=== PATIENT | male | born 1945 | race Caucasian/White ===

== ENCOUNTER 2017-12-24 09:03 | Outpatient (CLI) | payer MEDICARE, BC ==
--- NOTE | 2017-12-24 10:14 | ULT ---
ULTRASOUND TESTICULAR DOPPLER: Date: 12/24/17 HISTORY: Pain. COMPARISON: Ultrasound testicular Doppler dated 03/09/17. TECHNIQUE: Real-time Ordaz scale with color flow and spectral analysis of the testicles was performed. FINDINGS: Right testicle measures 4.6 x 2.5 x 1.9 cm. Left testicle measures 4.1 x 2.6 x 2.6 cm. Both epididymi abran are normal. The left fluid collection has similar appearance to the complex epididymal cyst/spermatocele. Adequate vascular flow to both testicles. IMPRESSION: Similar appearance of the left testicular fluid collection likely spermatocele. POS: [facility]
== END 2017-12-24 09:04 | disposition home or self-care (01) ==
LOC: SCSULT 09:03
PROVIDERS: ATTEND Urology
DX: N43.3 Hydrocele, unspecified (principal)
CPT/HCPCS: 76870; 93976

== ENCOUNTER 2019-06-24 07:55 | Outpatient (CLI) | payer MEDICARE ==
[2019-06-24 10:09] LABS: Hemoglobin 13.8 g/dL (14.0-18.0); Mean Corpuscular Hemoglobin 29.9 pg (27.0-31.0); Mean Corpuscular Volume 88.1 fL (78.0-98.0); Mean Platelet Volume 7.9 fL (7.4-10.4); Platelet Count 209 thou/uL (130-400); RBC Distribution Width 12.4 % (11.5-14.5); White Blood Cell (WBC) Count 7.2 thou/uL (4.8-10.8)
[2019-06-24 10:13] LABS: INR-International Normal Ratio 0.9; Prothrombin Time 12.4 SEC (12.0-14.7)
[2019-06-24 10:21] LABS: Anion Gap 13 mmol/L (10-20); BUN (Urea Nitrogen) 16 mg/dL (8.4-25.7); Calc. Creatinine Clearance 0 mL/min (70-130); Calcium 9.2 mg/dL (7.8-10.44); Carbon Dioxide 23 mmol/L (23-31); Chloride 109 mmol/L (98-107); Estimated GFR-MDRD 66; Glucose 107 mg/dL (83-110); Sodium 141 mmol/L (136-145)
[2019-06-24 10:29] LABS: Bacteria/HPF None Seen HPF (None Seen); Bilirubin Negative (Negative); Blood, Urine Negative (Negative); Clarity Clear (Clear); Glucose, Urine (Dipstick) Normal (Negative); Leukocyte Negative Leu/uL (Negative); Nitrite Negative (Negative); Protein, Urine (Dipstick) Negative (Neg-Trace); RBC/HPF 0-3 HPF (0-3); Squamous Epithelial 0-3 HPF (0-3); Urobilinogen Normal mg/dL (Less than 2); WBC/HPF 0-3 HPF (0-3)
--- NOTE | 2019-06-24 17:58 | EKG ---
Test Reason : Blood Pressure : / mmHG Vent. Rate : 058 BPM Atrial Rate : 058 BPM P-R Int : 216 ms QRS Dur : 096 ms QT Int : 420 ms P-R-T Axes : 053 053 053 degrees QTc Int : 412 ms Sinus bradycardia with 1st degree A-V block Otherwise normal ECG No previous ECGs available Confirmed by Karen LING ([id number]) on 06/24/2019 5:57:59 PM Referred By: ARELY Confirmed By:Karen LING
== END 2019-06-24 07:56 | disposition home or self-care (01) ==
LOC: LABBT 07:55
PROVIDERS: ATTEND Urology
DX: Z01.818 Encounter for other preprocedural examination (principal); N43.3 Hydrocele, unspecified; I11.9 Hypertensive heart disease without heart failure; E78.5 Hyperlipidemia, unspecified; R97.20 Elevated prostate specific antigen [PSA]; Z12.5 Encounter for screening for malignant neoplasm of prostate; N40.0 Benign prostatic hyperplasia without lower urinary tract symptoms
CPT/HCPCS: 80048; 81001; 85027; 85610; 85730; 87086; 93005; 93010

== ENCOUNTER 2019-07-04 08:02 | Day surgery (SDC) | payer MEDICARE ==
[2019-06-24 08:23] VITALS: BMI 32.3
[2019-07-04] MEDS ORDERED: Ondansetron PF 4 MG/2 ML Vial ONE (09:35)
[2019-07-04] MEDS ORDERED: Dexamethasone 20 MG/5 ML VIAL ONE (09:35)
[2019-07-04] MEDS ORDERED: PROPOFOL 200 MG/20 ML VIAL ONE (09:35)
[2019-07-04] MEDS ORDERED: Glycopyrrolate 0.2 MG/ML 5 ML SYRINGE ONE (09:35)
[2019-07-04] MEDS ORDERED: Lidocaine 1% PF 5 ML VIAL ONE (09:35)
[2019-07-04] MEDS ORDERED: Gentamicin 80 MG/2 ML VIAL ONE (10:21)
[2019-07-04] MEDS ORDERED: Bacitracin Zinc Ointment 30 gm TUBE ONE (10:21)
[2019-07-04] MEDS ORDERED: Fentanyl 100 MCG/2 ML VIAL ONE (11:54)
[2019-07-04] MEDS ORDERED: HYDROcodone/Acetaminophen 5/325 mg Tablet ONE ×2 (14:46)
--- NOTE | 2019-07-04 15:25 | OP ---
DATE OF PROCEDURE: 07/04/2019 PREOPERATIVE DIAGNOSIS: A 74-year-old male with history of large left hydrocele measuring over 15 cm encroaching the inguinal canal present for the last 20 to 25 years. POSTOPERATIVE DIAGNOSIS: A 74-year-old male with history of large left hydrocele measuring over 15 cm encroaching the inguinal canal present for the last 20 to 25 years. PROCEDURE PERFORMED: Left hydrocelectomy/spermatocelectomy. ANESTHESIA: General. SPECIMEN: Spermatocele sac, hydrocele sac for permanent. INDICATIONS FOR PROCEDURE AND HISTORY: Mr. Casillas is a pleasant 74-year-old male, who is a semi-retired manager heavy equipment, who has a history of left hydrocele, spermatocele present for over 20 years. It has been increasing in size and he desires to proceed with left hydrocelectomy, spermatocelectomy. Risks and complications of the procedure were reviewed with him in detail including, but not limited to, bleeding, pain, infection, recurrence of hydrocele/spermatocele, testicular atrophy, injury to adjacent organs, urosepsis, testicular atrophy, scrotal hematoma, abscess, possible secondary procedure was reviewed with him in detail and he desired to proceed. DESCRIPTION OF PROCEDURE: After an informed consent was signed, the patient taken to the operating room, placed in a supine position with the genital area prepped and draped in the usual surgical sterile fashion. Again, noted was a very large left hydrocele, involving the left hemiscrotum, encroaching the left inguinal canal. A left transverse scrotal incision was made. The dartos fascia was opened to the limits of skin incision. Immediately, there was very dense adherence of the subcutaneous tissue of the dartos and the tunica vaginalis. Extensive sharp dissection had to be utilized to free the dartos fascia off the scrotal skin, subsequently the tunica vaginalis layer was entered, which appeared to be very adherent and loculated. We mobilized the entire spermatocele, hydrocele to the level of the inguinal canal and delivered through the scrotal skin. The layers were densely fused. The hydrocele, spermatocele sac was then delivered, and inspected. It was very indurated and thick. We made a small incision to open the cavity and this demonstrated a cloudy sedimentous milky white fluid consistent with chronically-inflamed hydrocele, spermatocele. The hydrocele and the spermatocele sac were opened superiorly towards the inguinal canal, demonstrating multiloculated adherence. The layer by the testicle itself was densely fused with no obvious plane. Sharp dissection had to be utilized to mobilize the hydrocele sac off the tunica of the testicle itself. The layers of the hydrocele sac were multiloculated and fixed and adherent to itself requiring sharp dissection. We excised the redundant hydrocele sac. Care was taken not to remove too much to encroach the cord structures. The cord structures vascularity was protected and the densely inflamed layer was excised. Portion of the vas was densely adherent to the loculated hydrocele sac. It was involved in the edges that resected, therefore was doubly ligated with 2-0 silk tie. The edges were oversewn with 2-0 Vicryl in a running fashion. At the end of the procedure, the vascular flow was checked with intraoperative Doppler confirming vascular flow to the testes. The wound was copiously irrigated and a quarter-inch Jamari placed in the left hemiscrotum sewn into the skin, sutured to skin using 2-0 nylon. The edges of the hydrocele sac were oversewn with 3-0 Vicryl in a running fashion. The dartos fascia was closed with 2-0 Vicryl in a continuous fashion. Skin was closed with 2-0 chromic. A scrotal dressing was applied and he tolerated the procedure well and transported to the recovery room in stable condition. He was discharged with Keflex one p.o. q.i.d. for 7 days, Julianne Conrad 5/325 #40 one to two p.o. q.6 to 8 hours p.r.n. He will return to clinic in 2 days for inspection of the wound and removal of Jamari drain. Job ID: [id number] [facility]
== END 2019-07-04 16:15 | disposition home or self-care (01) ==
LOC: SDC 08:02
PROVIDERS: ATTEND Urology
PROC: 0VB70ZZ Excision of Left Tunica Vaginalis, Open Approach (ICD-10-PCS; principal; 2019-07-04)
PROC: 0VBK0ZZ Excision of Left Epididymis, Open Approach (ICD-10-PCS; 2019-07-04)
DX: N43.3 Hydrocele, unspecified (principal); N43.40 Spermatocele of epididymis, unspecified; I10 Essential (primary) hypertension; Z79.899 Other long term (current) drug therapy
CPT/HCPCS: 88302; J0690; J1100; J1580; J2001; J2405; J2704; J3010; J3370

== ENCOUNTER 2019-12-13 10:21 | Inpatient (IN) | payer MEDICARE, BC ==
[2019-12-13] MEDS ORDERED: niCARdipine 20MG In NaCl 20 MG/200 ML BAG ONE (10:43)
[2019-12-13 10:56] LABS: #Eosinphils 0.1 thou/uL (0.0-0.7); #Monocytes 0.7 thou/uL (0.11-0.59); #Neutrophils 10.7 thou/uL (1.40-6.50); %Basophils 0.1 % (0.0-1.0); %Eosinophils 0.6 % (0.0-10.0); %Lymphocytes 7.6 % (21.0-51.0); %Monocytes 5.8 % (0.0-10.0); %Neutrophils 85.8 % (42.0-75.0); Hemoglobin 15.9 g/dL (14.0-18.0); Mean Corpuscular HGB CONC 32.7 g/dL (32.0-36.0); Mean Corpuscular Hemoglobin 29.5 pg (27.0-31.0); Mean Corpuscular Volume 90.1 fL (78.0-98.0); Mean Platelet Volume 7.6 fL (7.4-10.4); Platelet Count 226 thou/uL (130-400); RBC Distribution Width 12.2 % (11.5-14.5); Red Blood Cell (RBC) Count 5.39 mill/uL (4.70-6.10); White Blood Cell (WBC) Count 12.5 thou/uL (4.8-10.8)
[2019-12-13 10:59] LABS: INR-International Normal Ratio 0.9; PTT 26.4 sec (22.9-36.1); Prothrombin Time 11.8 sec (12.0-14.7)
[2019-12-13 11:19] LABS: ALT (SGPT) 13 U/L (8-55); AST (SGOT) 16 U/L (5-34); Albumin 4.4 g/dL (3.4-4.8); Alkaline Phosphatase 82 U/L (40-110); Anion Gap 16 mmol/L (10-20); BUN (Urea Nitrogen) 13 mg/dL (8.4-25.7); Bilirubin, Total 0.5 mg/dL (0.2-1.2); Calc. Creatinine Clearance 0 mL/min (70-130); Calcium 9.6 mg/dL (7.8-10.44); Carbon Dioxide 22 mmol/L (23-31); Chloride 103 mmol/L (98-107); Estimated GFR-MDRD 61; Glucose 119 mg/dL (83-110); Potassium 3.7 mmol/L (3.5-5.1); Protein, Total 8.4 g/dL (5.8-8.1); Sodium 137 mmol/L (136-145)
[2019-12-13] MEDS ORDERED: Communication Order-Pharmacy FS PRN (12:42)
[2019-12-13] MEDS: Sodium Chloride 0.9% 1,000 ML IV SCH ×2 (13:00→21:05)
--- NOTE | 2019-12-13 13:25 | CT ---
CT OF THE BRAIN WITHOUT CONTRAST: COMPARISON: 05/26/2014. HISTORY: Stroke alert. Last seen normal at 8:00 p.m. The patient collapsed. TECHNIQUE: Multiple contiguous axial images were obtained in a CT of the brain without contrast. FINDINGS: There is a hypertensive hemorrhage in the left basal ganglia measuring 3.0 cm in size. A small amoun t of interventricular hemorrhage is seen secondary to interventricular extension of the hemorrhage. No hydrocephalus is seen. There are scattered hypodensities in the subcortical and periventricular w remberto matter, likely secondary to small-vessel ischemic disease. The calvarium and overlying soft tissues are unremarkable. The visualized paranasal sinuses and mast oid air cells are well aerated. IMPRESSION: Hypertensive hemorrhage involving the left basal ganglia with intraventricular extension of the hemor rhage. Dr. Powers notified of the findings at 10:35 a.m. on 12/13/2019. CODE CR
--- NOTE | 2019-12-13 13:32 | RAD ---
EXAM: CHEST ONE VIEW: 12/13/19 HISTORY: Preoperative evaluation, weakness, collapse. COMPARISON: 05/26/14. FINDINGS: Heart size is within normal limits. No confluent pneumonia, overt edema, or pleural effusion. IMPRESSION: No significant acute intrathoracic disease. POS: [facility]
[2019-12-13 14:14] VITALS: BMI 31.6
[2019-12-13] MEDS: niCARdipine 25 MG in Sodium Chloride 0.9% 250 ML 240 ML IVPB SCH ×2 (15:40→17:20)
--- NOTE | 2019-12-13 16:16 | PDOC.FPRHP ---
- History of Present Illness Chief Complaint: Loss of consciousness and weakness History of Present Illness: This is a consult note Mr. Casillas is a pleasant 74 yo male with a pmh of HTN who presented to the ER after a witnessed LOC. He states he was with his daughter when he passed out and was lowered to the floor and his daughter denies head trauma. He reports the LOC was less than a minute and he was paralized when he came around. He states that he is unable to move his right sided of his body or sit up. He has never had issues with strokes before and reports that his father of a stroke at the age of 60. He has a history of HTN which he has had varying success with controlling his HTN. He denies changes in his vision, headache, nausea, vomiting, chest pain, shortness of breath, or abdominal pain. ED Course: Cardene - Allergies/Adverse Reactions Allergies Allergy/AdvReac Type Severity Reaction Status Date / Time No Known Allergies Allergy Unverified 06/24/19 08:24 - Home Medications Medication Instructions Recorded Confirmed Type Amlodipine/Benazepril [Lotrel] 1 tab PO QAM 06/24/19 12/14/19 History - History PMHx: HTN, HLD PSHx: Hernia repair, exploratory laparotomy, hx of colostomy FHx: Father stroke in 60s Social: Denies ERIN - Review of Systems General: denies: fever/chills, weight/appetite/sleep changes, night sweats, fatigue Eyes: denies: eye pain, vision changes ENT: denies: nasal congestion, rhinorrhea Respiratory: denies: cough, congestion, shortness of breath, exercise intolerance Cardiovascular: denies: chest pain, palpitation, edema, paroxysmal nocturnal dyspnea, orthopnea Gastrointestinal: denies: nausea, vomiting, diarrhea, constipation, abdominal pain Genitourinary: denies: incontinence, dysuria Skin: denies: rashes, lesions, jaundice Neurological: reports: numbness, syncope, weakness Psychological: denies: anxiety, depression - Vital signs On admission to ER BP: 193/117 HR: 86 RR: 19 Tmax: 97.7 Pox: 98% on ra Wt: 100kg - Physical Exam Constitutional: NAD, awake, alert and oriented, well developed HEENT: normocephalic and atraumatic, PERRLA, EOMI, grossly normal vision, grossly normal hearing, MMM Neck: trachea midline, no JVD Chest: no-tender to palpation Heart: RRR, normal S1/S2, no murmurs/rubs/gallops, pulses present, no edema Lungs: CTAB, no respiratory distress, good air movement, no rales/rhonchi, no wheezing, no retractions Abdomen: soft, non-tender, bowel sounds present, no masses/distention, other ( scars from colostomy) Musculoskeletal: normal structure, other (Decreased tone on the right side of body) -Neurological: CN 2-12 grossly intact with the exception of VII and XI 5/5 strength on the left upper and lower extremities 2-3/5 strength in the right upper extremity 3/5 strength in the right lower extremity Negative HINTS exam No sensory sensation on the right upper extremity, lower extremity, or torso Normal sensation on the left side globally Unable to assess cerebellar function due to weakness Skin: good turgor, capillary refill <2 seconds Heme/Lymphatic: no unusual bruising or bleeding, no purpura Psychiatric: normal mood and affect FMR H&P: Results - Labs Result Diagrams: 12/13/19 10:31 12/13/19 10:31 Lab results: WBC 12.5 thou/uL (4.8-10.8) H 12/13/19 10:31 Hgb 15.9 g/dL (14.0-18.0) 12/13/19 10:31 Hct 48.6 % (42.0-52.0) 12/13/19 10:31 MCV 90.1 fL (78.0-98.0) 12/13/19 10:31 Plt Count 226 thou/uL (130-400) 12/13/19 10:31 Neutrophils % 85.8 % (42.0-75.0) H 12/13/19 10:31 Sodium 137 mmol/L (136-145) 12/13/19 10:31 Potassium 3.7 mmol/L (3.5-5.1) 12/13/19 10:31 Chloride 103 mmol/L (98-107) 12/13/19 10:31 Carbon Dioxide 22 mmol/L (23-31) L 12/13/19 10:31 BUN 13 mg/dL (8.4-25.7) 12/13/19 10:31 Creatinine 1.16 mg/dL (0.7-1.3) 12/13/19 10:31 Glucose 119 mg/dL (83-110) H 12/13/19 10:31 Calcium 9.6 mg/dL (7.8-10.44) 12/13/19 10:31 Total Bilirubin 0.5 mg/dL (0.2-1.2) 12/13/19 10:31 AST 16 U/L (5-34) 12/13/19 10:31 ALT 13 U/L (8-55) 12/13/19 10:31 Alkaline Phosphatase 82 U/L (40-110) 12/13/19 10:31 Serum Total Protein 8.4 g/dL (5.8-8.1) H 12/13/19 10:31 Albumin 4.4 g/dL (3.4-4.8) 12/13/19 10:31 - EKG Interpretation EKG: Second degree heart block Mobitz type I - Radiology Interpretation Chest x-ray Status: report reviewed by me (No acute intracranial pressure) CT scan - chest Status: report reviewed by me (Left basal ganglia bleed with intraventricular spread) FMR H&P: A/P - Problem List (1) Intracranial hemorrhage Current Visit: Yes Status: Acute Code(s): I62.9 - NONTRAUMATIC INTRACRANIAL HEMORRHAGE, UNSPECIFIED - Plan Left sided basal ganglia hemorrhage with ventricular spread -Management including blood pressure control by Neurosurgery -PT/OT/ST/CM consulted and likely inpatient rehab placement Hypertensive emergency -As above HTN -Continuing home when pt can take PO meds amlodipine/benazepril HLD -FLP, will start atorvastatin when cleared by ST CKD2, appears at baseline Code: Cardiac only, DNI Prophylaxis: SCDs, pepcid Family: None at bedside, discussed pt with next of Kin, Sudha Casillas with patient 's consent Fluids: NS 125ml/hr Drips: Cardene 15 Disposition: DC to rehab in 2-3 days PCP: Dr. Ackerman Addendum - Attending - Attending Attestation Date/Time: 12/14/19 1195 I personally evaluated the patient and discussed the management with Dr. Grant. I agree with the History, Examination, Assessment and Plan documented above with any addition or exceptions noted below. Hemorrhagic stroke with relatively dense right hemiparesis and hemiesthesia. NSx mgmt for leandro-event BP control with subsequent management by us. Begin statin when able. Otherwise supportive care.
[2019-12-13] MEDS ORDERED: Acetaminophen 325 MG TAB PO PRN (17:46)
[2019-12-13] MEDS ORDERED: traMADol HCl 50 MG TAB PO PRN (17:47)
[2019-12-13] MEDS ORDERED: HYDROcodone/Acetaminophen 5/325 mg Tablet PO PRN (17:47)
[2019-12-13] MEDS ORDERED: Labetalol HCl 100 MG/20 ML VIAL SLOW IVP PRN (17:48)
[2019-12-13] MEDS ORDERED: Ondansetron PF 4 MG/2 ML Vial IVP PRN (17:48)
[2019-12-13] MEDS ORDERED: hydrALAZINE 20 MG/ML VIAL SLOW IVP PRN (17:51)
[2019-12-13] MEDS: niCARdipine 50 MG in Sodium Chloride 0.9% 250 ML 230 ML IV SCH (19:16)
[2019-12-14] MEDS: niCARdipine 50 MG in Sodium Chloride 0.9% 250 ML 230 ML IV SCH ×2 (00:20→04:49)
--- NOTE | 2019-12-14 02:02 | HP ---
CHIEF COMPLAINT: Altered mental status, right-sided arm and leg weakness. HISTORY OF PRESENT ILLNESS: Mr. Casillas is a 74-year-old gentleman, who presented to the emergency department today for evaluation of altererd mental status and acute onset of right upper and lower extremity weakness. He states that he had sudden onset of lightheadedness around 8:00 a.m. with subsequent right-sided extremity weakness and loss of ability to stand or ambulate. He denies any prior history of similar symptoms. A CT of the brain revealed left-sided basal ganglia hemorrhage. Patient was admitted to the Critical Care Unit for further neurologic monitoring and blood pressure control. He is not on aspirin or other anticoagulation at home. Patient reports lightheadedness and states that he does not believe that he passed out, but felt as if he was going to. No associated trauma. He has has right arm and leg weakness, with inability to stand or walk. He denies any complaints of pain. He denies headaches, vision changes, chest pain, shortness of breath, or nausea. He does report some difficulty with speech. PAST MEDICAL HISTORY: Hypertension. PAST SURGICAL HISTORY: No recent surgeries. SOCIAL HISTORY: Denies tobacco use. ALLERGIES: NO KNOWN DRUG ALLERGIES. REVIEW OF SYSTEMS: Positive for lightheadedness, right arm and leg weakness, loss of ability to ambulate, and speech difficulties. Otherwise, 12-point review of systems is negative. PHYSICAL EXAMINATION: GENERAL: Patient is awake, alert, and appropriate. He is oriented to self, place, and day of the week (Thursday), however he is disoriented to the month and the year. HEENT: Pupils are 2 mm, equal, round, and sluggishly reactive to light. Extraocular movements are intact. Patient exhibits right-sided facial droop. Otherwise, cranial nerves 2 through 12 are grossly intact. No tongue fasciculations. EXTREMITIES: 2/5 strength in his right trapezius, deltoids, triceps, and biceps. 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 4/5 strength throughout right lower extremity myotomes. 4/5 strength left biceps and triceps, otherwise 5/5 strength throughout left upper and lower extremity myotomes. He is asensate in his right extremities. : Jimenez catheter in place. IMPRESSION AND DIAGNOSES: 1. Acute left basal ganglia hemorrhage, atraumatic. 2. History of hypertension. PLAN: Case was discussed and imaging reviewed with Dr. Delatorre. Initial brain CT revealed findings of left basal ganglia hemorrhage. No neurosurgical intervention pursued at this time and patient was admitted to the Critical Care Unit for close neurologic monitoring with q.1 hour neurologic checks and blood pressure control. Patient was started on Cardene drip, and orders were written for p.r.n. hydralazine and labetalol. Systolic blood pressure should be kept less than 140. Head of bed 30 degrees. Bedrest and n.p.o. until tomorrow morning when repeat CT of the brain will be performed for reevaluation. Please call for any neurologic changes or other concerns. This was a 50-minute initial visit, in which greater than 50% of the time was spent in review of records, imaging, evaluation, examination of the patient, and formulation of plan. The remaining time was spent in counseling and coordination of care. Job ID: [id number]
[2019-12-14 04:22] LABS: Cardiac Risk 5.5 (Less than 4.5)
--- NOTE | 2019-12-14 07:26 | PDOC.BPN ---
- Brief Progress Note Discussed transfer of care of patient with Dr. Mesa who accepts the patient at 0725 12/13.
[2019-12-14] MEDS ORDERED: Famotidine/PF 20 mg/2ml Vial SLOW IVP SCH (09:00)
--- NOTE | 2019-12-14 09:18 | CT ---
CT BRAIN WITHOUT CONTRAST: COMPARISON: 12/13/2019. HISTORY: Hypertensive hemorrhage in left basal ganglia. TECHNIQUE: Multiple contiguous axial images were obtained in a CT of the brain without contrast. FINDINGS: There is a hemorrhage again seen in the left basal ganglia. This has slightly increased in size evie uring 3.4 cm in greatest dimension when it previously measured 3.0 cm in greatest dimension. There i s a small amount of surrounding edema. There is a stable small amount of interventricular hemorrhage in the posterior aspect of both lateral ventricles. No hydrocephalus is seen. No downward shift or midline herniation is seen. There are scattered hypodensities in the subcortical and periventricula r white matter, likely secondary to small-vessel ischemic disease. The calvarium and overlying soft tissues are unremarkable. Mucosal thickening is seen in the ethmoid air cells. The other paranasal sinuses and mastoid air cells are well aerated. IMPRESSION: 1. Slight increased size of left basal ganglia hemorrhage. 2. Stable intraventricular hemorrhage. POS: [facility]
[2019-12-14] MEDS: Amlodipine 5 mg/Benazepril 10 mg CAP PO SCH (09:24)
--- NOTE | 2019-12-14 09:57 | CON ---
DATE OF CONSULTATION: 12/14/2019 REASON FOR CONSULTATION: The patient has had a stroke and is also on IV antihypertensive medication. HISTORY OF PRESENT ILLNESS: The patient is a 74-year-old, who presented with acute onset of right upper extremity and lower extremity weakness. He was found to have a left basal ganglia hemorrhage. He was seen by Neurosurgery, but not thought to be an operative candidate. He has been on nicardipine overnight for management of hypertension. Right now, he is on minimal amounts. PAST MEDICAL HISTORY: Hypertension. PAST SURGICAL HISTORY: None. SOCIAL HISTORY: Nonsmoker. Does not consume alcohol. ALLERGIES: NONE. MEDICATIONS: Prior to admission; Lotrel one daily. Inpatient medications: 1. Lotrel. 2. Lipitor. 3. Pepcid. 4. Apresoline. 5. Phoenix. 6. Normodyne. 7. Nicardipine. 8. Tramadol. 9. Zofran. PHYSICAL EXAMINATION: VITAL SIGNS: Pulse 84, blood pressure 116/60, O2 saturation 93%, respiratory rate 19, and temperature 99.5. GENERAL: He is awake, alert, no distress. HEENT: Pupils are reactive. Sclerae are anicteric. Oropharynx clear. Tongue protrudes midline. NECK: No adenopathy. No JVD. No bruits. LUNGS: Clear anteriorly. CARDIOVASCULAR: S1 and S2, regular. ABDOMEN: Soft and nontender. EXTREMITIES: No edema. NEUROLOGIC: He has hemiparesis on the right side. He has partial movement on the right hand. Left side strength 5/5 throughout. LABORATORY DATA: White blood cell count 12.5, hematocrit 40.6, and platelet count 226. INR 0.9. Sodium 137, potassium 3.7, chloride 103, CO2 of 22, BUN 13, creatinine 1.1, and glucose 119. ASSESSMENT: 1. Basal ganglia hemorrhage. 2. Right-sided hemiparesis. 3. Hypertension. PLAN: 1. Switch over to oral antihypertensive medication. 2. Transferred stroke floor for stroke rehab. 3. Speech Therapy consult. Job ID: [id number]
--- NOTE | 2019-12-14 09:58 | PRG ---
DATE OF SERVICE: 12/14/2019 This is a 30-minute initial visit note, in which 30 minutes were spent reviewing the imaging, record evaluation, and a view of the data. Greater than 50% time was spent in counseling on Vladimir Casillas. Reviewed the notes of my colleague, Ting Hoffman PA-C, and agrees with its content. SUBJECTIVE: Mr. Casillas is a 74-year-old man, who presented with a hypertensive left thalamic hemorrhage. Systolic blood pressure was over 200. Head CT demonstrates some blossoming this morning with intraventricular extension. There is no hydrocephalus. The patient is hemiplegic on the right side. Otherwise, his speech is fluent. He is on a nicardipine drip with satisfactory systolic blood pressure control in the 150 range. I have recommended a blood pressure control of 140/90. He will need rehab and good blood pressure control at this point. I would be fine with change of his neurologic neuro checks to every 2 hours, and then, if he is stable tomorrow, he can go to every 4 hours and to the floor. I will arrange a followup head CT in 1 month. He can be transferred to the Medicine Service. DIAGNOSIS: Left thalamic hypertensive hemorrhage. Job ID: [id number]
[2019-12-14] MEDS ORDERED: Furosemide 40 MG/4 ML VIAL SLOW IVP SCH (10:45)
[2019-12-14] MEDS ORDERED: Nitroglycerin 0.4 MG TAB (25 Tab Bottle) PO PRN (13:32)
--- NOTE | 2019-12-14 13:44 | PDOC.HOSPP ---
- Subjective Encounter Date: 12/14/19 Encounter Time: 12:30 Subjective: Patient seen and examined for ICH. No new focal deficits. No CP or SOB. No new complaints. No overnight events - Objective Vital Signs & Weight: Vital Signs (12 hours) Temp Pulse Pulse BP BP Pulse Ox Pulse Ox 12/14/19 11:05 88 77 134/62 159/81 H 95 92 L 12/14/19 09:00 99.3 F 12/14/19 04:00 99.5 F Weight Weight 219 lb 5.759 oz Most Recent Monitor Data Heart Rate from ECG 79 NIBP 119/65 NIBP BP-Mean 83 Respiration from ECG 16 SpO2 94 I&O: 12/13/19 12/14/19 12/15/19 06:59 06:59 06:59 Intake Total 2859 Output Total 1137 250 Balance 1722 -250 Result Diagrams: 12/13/19 10:31 12/13/19 10:31 Radiology Reviewed by me: Yes (CT brain - ICH) EKG Reviewed by me: Yes (Tele SR) Hospitalist ROS - Review of Systems Respiratory: denies: cough, dry, shortness of breath, hemoptysis, SOB with excertion, pleuritic pain, sputum, wheezing, other Cardiovascular: denies: chest pain, palpitations, orthopnea, paroxysmal noc. dyspnea, edema, light headedness, other - Medication Medications: Active Medications Generic Name Dose Route Start Last Admin Trade Name Freq PRN Reason Stop Dose Admin Amlodipine/Benazepril HCl 1 cap 12/14/19 09:00 12/14/19 09:24 Lotrel 5/10 PO 1 cap QAM [facility] Administration - Exam General Appearance: NAD Heart: RRR, no gallops, no rubs, normal peripheral pulses Respiratory: no wheezes, no rales, no ronchi, normal chest expansion Gastrointestinal: non-tender, non-distended, no palpable masses, tender to palpation Extremities: no cyanosis, no clubbing, no edema Neurological: no new deficit Neurological - other findings: Rt sided weakness - 1-2/5 Psychiatric: normal affect, A&O x 3 Hosp A/P - Plan DVT proph w/SCDs Acute hemorrhagic CVA causing Rt hemiparesis HTN Obesity BMI 31.5 Mobitz type 1 AV block HLD CKD 2 PLAN: Add Echo Transfer to Stroke Cont Lotrel Add Hydralazine Cont Statins No antiplatelets due to ICH AM labs DC Labetalol PRN due to AV block
[2019-12-14] MEDS: hydrALAZINE 25 MG TAB PO SCH ×2 (16:55→20:44)
[2019-12-14] MEDS: Atorvastatin Calcium 40 MG TAB PO SCH (20:44)
[2019-12-15 04:15] LABS: Anion Gap 17 mmol/L (10-20); BUN (Urea Nitrogen) 13 mg/dL (8.4-25.7); Calc. Creatinine Clearance 93 mL/min (70-130); Calcium 9.2 mg/dL (7.8-10.44); Carbon Dioxide 19 mmol/L (23-31); Chloride 100 mmol/L (98-107); Estimated GFR-MDRD 77; Glucose 111 mg/dL (83-110); Potassium 3.7 mmol/L (3.5-5.1); Sodium 132 mmol/L (136-145)
[2019-12-15] MEDS: hydrALAZINE 25 MG TAB PO SCH ×3 (08:33→19:50)
[2019-12-15] MEDS: Amlodipine 5 mg/Benazepril 10 mg CAP PO SCH (08:34)
--- NOTE | 2019-12-15 09:30 | PRG ---
DATE OF SERVICE: 12/14/2019 SUBJECTIVE: The patient is still paraplegic on the right, very discouraged by that. OBJECTIVE: VITAL SIGNS: Temperature 99.8, pulse 100, blood pressure 184/105. HEENT: Unremarkable. NECK: No JVD. LUNGS: Clear anteriorly. CARDIAC: S1 and S2. Regular. ABDOMEN: Soft. EXTREMITIES: No edema. LABORATORY DATA: Sodium 132, potassium 3.7, chloride 100, CO2 of 19, BUN 13, creatinine 0.9, glucose 111. ASSESSMENT: 1. Hypertension with continued severe elevation of blood pressure. 2. Stroke, basal ganglia hemorrhage with right-sided hemipareses. PLAN: Needs more aggressive control of his blood pressure. Hospitalist for managing that. Can probably be transferred to stroke floor. Pulmonary available if assistance needed. Job ID: [id number]
--- NOTE | 2019-12-15 15:35 | PDOC.PALCO ---
Palliative Care Consult - Consult Details Requesting Physician: Dr Murillo Reason for Consult: advance directives assistance, family support Family Members Present: Waldemar son - Pertinent HPI Lives in a private home setting. His daughter wittnessed a loss of consciousness and assisted him to the floor, when he regained became awake he had right side hemiplegia. Presented to the emergency room for further evaluation, admitted for medical management of intracranial hemorrhage, hypertension, heart block. . - Pertinent PMH Hypertension, family reports non compliant - Social History Smoking Status: Never smoker Smoking: no tobacco exposure Alcohol Use: none Drug Use History: none Living Situation: independent - Medications MAR Reviewed: Yes - Allergies Allergies/Adverse Reactions: Allergies Allergy/AdvReac Type Severity Reaction Status Date / Time No Known Allergies Allergy Unverified 06/24/19 08:24 - Subjective Lethargic, sleepy. Not a reliable source for ROS - ROS Non Response: due to mental status - Objective Vital Signs: Vital Signs - Most Recent Temp Pulse Resp BP Pulse Ox 100.1 F H 106 H 129/74 95 12/15/19 12:03 12/15/19 14:30 12/15/19 14:30 12/15/19 08:00 Palliative Performance Scale: 40 - Physical Exam Constitutional: NAD, confusion HEENT: moist MMs Respiratory: unlabored breathing Cardiovascular: RRR Gastrointestinal: soft, non-tender, positive bowel sounds Genitourinary: albarran catheter Musculoskeletal: no cyanosis Neurology: hemiplegia Skin: cap refill <2 seconds Deviation from normal: Alert - Problem List (1) Palliative care encounter Code(s): Z51.5 - ENCOUNTER FOR PALLIATIVE CARE Current Visit: Yes Status: Acute (2) Hypertension Code(s): I10 - ESSENTIAL (PRIMARY) HYPERTENSION Current Visit: Yes Status: Acute (3) Intracranial hemorrhage Code(s): I62.9 - NONTRAUMATIC INTRACRANIAL HEMORRHAGE, UNSPECIFIED Current Visit: Yes Status: Acute - Plan/Recommendations Plan: Introduced Palliative Care to patient and son. Mr Casillas lethargic and appeared to have difficulty processing conversation. Visit today focused on short life review and establishing what is important to him. Son at bedside. Mr Casillas in not , and has three daughters and one son. Active prior to this event. Son was tearful. Emotional support. Spiritual care consult Palliative Care has obtained phone numbers for patient children. Secondary to no designated MPOA we will follow up 5/29 and if Mr Casillas is not able to designate one of his children as surrogate decision maker and list as MPOA we will see if the children would be agreeable to designate one. *Follow up 12/15 to revisit resuscitation status and identify decision maker/ MPOA. [60] minutes spent on this encounter with >50% of the time in counseling and coordination of care. Thank you for this very appropriate consult.
--- NOTE | 2019-12-15 18:16 | PDOC.HOSPP ---
- Subjective Encounter Date: 12/15/19 Encounter Time: 15:00 Subjective: F/u: stroke The patient is laying in bed, appears fatigued. Reports right arm and leg numbness. HE has decreased sensation. He has no headache, nausea, or vomiting - Objective Vital Signs & Weight: Vital Signs (12 hours) Temp Pulse BP Pulse Ox 12/15/19 15:57 99.7 F H 12/15/19 14:30 106 H 129/74 12/15/19 12:32 101 H 156/92 H 12/15/19 12:03 100.1 F H 12/15/19 08:33 91 184/105 H 12/15/19 08:00 95 12/15/19 07:21 99.8 F H Weight Weight 220 lb Most Recent Monitor Data Heart Rate from ECG 100 NIBP 142/83 NIBP BP-Mean 102 Respiration from ECG 21 SpO2 93 I&O: 12/14/19 12/15/19 12/16/19 06:59 06:59 06:59 Intake Total 2859 Output Total 1137 1900 Balance 1722 -1900 Result Diagrams: 12/13/19 10:31 12/15/19 03:14 Hospitalist ROS - Review of Systems Constitutional: denies: fever, chills - Medication Medications: Active Medications Generic Name Dose Route Start Last Admin Trade Name Freq PRN Reason Stop Dose Admin Acetaminophen 650 mg 12/13/19 17:46 12/15/19 12:28 Tylenol PO 650 mg Q6H PRN Administration Headache/Fever or Pain Amlodipine/Benazepril HCl 1 cap 12/14/19 09:00 12/15/19 08:34 Lotrel 5/10 PO 1 cap QAM CHARLA Administration Atorvastatin Calcium 40 mg 12/14/19 21:00 12/14/19 20:44 Lipitor PO 40 mg HS CHARLA Administration Hydralazine HCl 10 mg 12/13/19 17:51 12/15/19 12:32 Apresoline SLOW IVP 10 mg Q15MIN PRN Administration SBP >140 Hydralazine HCl 50 mg 12/15/19 15:00 12/15/19 14:30 Apresoline PO 50 mg TID CHARLA Administration - Exam General Appearance: NAD, awake alert Eye: PERRL, anicteric sclera ENT: normocephalic atraumatic, no oropharyngeal lesions Neck: no JVD Heart: RRR, no murmur, no gallops, no rubs Respiratory: CTAB, no wheezes, no rales, no ronchi Gastrointestinal: soft, non-tender, non-distended, normal bowel sounds Extremities: no cyanosis, no clubbing, no edema Skin: normal turgor, no lesions, no rashes Neurological - other findings: patient unable to lift up right leg. Dec sensation right arm + leg Musculoskeletal: normal tone, normal strength Musculoskeletal - other findings: decreased strrength right leg Psychiatric: normal affect, normal behavior, A&O x 3 Hosp A/P - Plan CT head: slight increased size of left basal ganglia hemorrhage This is a 74 year old male who presented to the hospital with intracranial hemorrhage #Left basal gangalia Intracranial hemorrhage #Hypertensive emergency - increase hydralazine to 50 mg tid - continue amlodipine/benazepril. REpeat cT head shows slight increased size in hemorrhage. Per neurosurgery, monitor for any neuro deficits - chest Xray normal - needs PT/OT and rehab Leukocytosis -12.5 on admission. Will repeat CBC in am Hyponatremia - mild, will monitor
[2019-12-15] MEDS: Atorvastatin Calcium 40 MG TAB PO SCH (19:51)
[2019-12-16 04:07] LABS: Hemoglobin 16.2 g/dL (14.0-18.0); Mean Corpuscular HGB CONC 32.9 g/dL (32.0-36.0); Mean Corpuscular Hemoglobin 29.3 pg (27.0-31.0); Mean Corpuscular Volume 89.1 fL (78.0-98.0); Mean Platelet Volume 7.6 fL (7.4-10.4); Platelet Count 237 thou/uL (130-400); RBC Distribution Width 12.4 % (11.5-14.5); Red Blood Cell (RBC) Count 5.54 mill/uL (4.70-6.10); White Blood Cell (WBC) Count 11.7 thou/uL (4.8-10.8)
[2019-12-16 04:27] LABS: Anion Gap 16 mmol/L (10-20); BUN (Urea Nitrogen) 26 mg/dL (8.4-25.7); Calc. Creatinine Clearance 76 mL/min (70-130); Calcium 9.2 mg/dL (7.8-10.44); Carbon Dioxide 20 mmol/L (23-31); Chloride 98 mmol/L (98-107); Estimated GFR-MDRD 61; Glucose 112 mg/dL (83-110); Potassium 3.6 mmol/L (3.5-5.1); Sodium 130 mmol/L (136-145)
[2019-12-16] MEDS: hydrALAZINE 25 MG TAB PO SCH ×3 (06:26→21:36)
[2019-12-16] MEDS ORDERED: hydrALAZINE 25 MG TAB PO SCH (09:15)
[2019-12-16] MEDS: Amlodipine 5 mg/Benazepril 10 mg CAP PO SCH (09:30)
--- NOTE | 2019-12-16 15:01 | PDOC.HOSPP ---
- Subjective Encounter Date: 12/16/19 Encounter Time: 14:00 Subjective: The patient states he feels the same. Appears slightly short of breath. He still has some right sided weakness and numbness. No headaches The patient reports not eating and drinking that much because he doesn't feel like it - Objective Vital Signs & Weight: Vital Signs (12 hours) Temp Pulse Pulse Pulse BP BP BP 12/16/19 11:12 98.3 F 12/16/19 10:30 93 96 153/85 H 143/87 H 12/16/19 09:30 90 146/91 H 12/16/19 08:00 12/16/19 07:25 98.2 F 12/16/19 06:26 97 159/97 H 12/16/19 04:17 98.8 F Pulse Ox Pulse Ox Pulse Ox 12/16/19 11:12 12/16/19 10:30 98 96 12/16/19 09:30 12/16/19 08:00 95 12/16/19 07:25 12/16/19 06:26 12/16/19 04:17 Weight Weight 225 lb 1.6 oz Most Recent Monitor Data Heart Rate from ECG 94 NIBP 137/81 NIBP BP-Mean 99 Respiration from ECG 20 SpO2 95 I&O: 12/15/19 12/16/19 12/17/19 06:59 06:59 06:59 Intake Total 260 Output Total 1900 450 Balance -1900 -190 Result Diagrams: 12/16/19 03:13 12/16/19 03:13 Hospitalist ROS - Review of Systems Constitutional: denies: fever, chills - Medication Medications: Active Medications Generic Name Dose Route Start Last Admin Trade Name Freq PRN Reason Stop Dose Admin Acetaminophen 650 mg 12/13/19 17:46 12/15/19 12:28 Tylenol PO 650 mg Q6H PRN Administration Headache/Fever or Pain Amlodipine/Benazepril HCl 1 cap 12/14/19 09:00 12/16/19 09:30 Lotrel 5/10 PO 1 cap QAM CHARLA Administration Atorvastatin Calcium 40 mg 12/14/19 21:00 12/15/19 19:51 Lipitor PO 40 mg HS CHARLA Administration Hydralazine HCl 10 mg 12/13/19 17:51 12/15/19 12:32 Apresoline SLOW IVP 10 mg Q15MIN PRN Administration SBP >140 Sodium Chloride 10 ml 12/14/19 13:32 12/16/19 09:31 Flush - Normal Saline IVF 10 ml PRN PRN Administration Saline Flush - Exam General Appearance: NAD, awake alert Eye: PERRL, anicteric sclera ENT: normocephalic atraumatic, no oropharyngeal lesions Neck: supple, no JVD Heart: RRR, no murmur, no gallops, no rubs Respiratory: CTAB, no wheezes, no rales, no ronchi Gastrointestinal: soft, non-tender, non-distended, normal bowel sounds Extremities: no cyanosis, no clubbing, no edema Skin: normal turgor, no lesions, no rashes Neurological - other findings: patient unable to lift up right arm. Can move right leg. Dec sensation righ Musculoskeletal: normal tone, normal strength, no muscle wasting Hosp A/P - Plan CT head: slight increased size of left basal ganglia hemorrhage This is a 74 year old male who presented to the hospital with intracranial hemorrhage #Left basal gangalia Intracranial hemorrhage #Hypertensive emergency - increase hydralazine to 75 mg tid. BP goal > 140 - continue amlodipine/benazepril. REpeat cT head 12/15 shows slight increased size in hemorrhage. Per neurosurgery, monitor for any neuro deficits - chest Xray normal - patient approved for rehab today Leukocytosis -improved, will monitor Hyponatremia - downtrending. Sodium 130. Serum osmolarity 276, check urine osmolarity
[2019-12-16] MEDS: Atorvastatin Calcium 40 MG TAB PO SCH (21:36)
[2019-12-17 03:36] LABS: Hemoglobin 15.8 g/dL (14.0-18.0); Mean Corpuscular HGB CONC 34.3 g/dL (32.0-36.0); Mean Corpuscular Volume 87.5 fL (78.0-98.0); Mean Platelet Volume 8.6 fL (7.4-10.4); Platelet Count 188 thou/uL (130-400); RBC Distribution Width 12.4 % (11.5-14.5); Red Blood Cell (RBC) Count 5.25 mill/uL (4.70-6.10); White Blood Cell (WBC) Count 12.5 thou/uL (4.8-10.8)
[2019-12-17 03:53] LABS: Anion Gap 16 mmol/L (10-20); BUN (Urea Nitrogen) 40 mg/dL (8.4-25.7); Calc. Creatinine Clearance 66 mL/min (70-130); Calcium 9.4 mg/dL (7.8-10.44); Carbon Dioxide 20 mmol/L (23-31); Chloride 96 mmol/L (98-107); Estimated GFR-MDRD 50; Glucose 119 mg/dL (83-110); Potassium 3.4 mmol/L (3.5-5.1); Sodium 129 mmol/L (136-145)
[2019-12-17] MEDS: Amlodipine 5 mg/Benazepril 10 mg CAP PO SCH (08:53)
[2019-12-17] MEDS: hydrALAZINE 25 MG TAB PO SCH ×2 (08:53→13:55)
[2019-12-17 11:14] VITALS: TEMP 96.7
[2019-12-17 13:55] VITALS: BP 155/66
--- NOTE | 2019-12-17 16:31 | DIS ---
DATE OF ADMISSION: 12/13/2019 DATE OF DISCHARGE: 12/17/2019 DISCHARGE DIAGNOSES: 1. Left basal ganglia intracranial hemorrhage. 2. Hypertensive emergency. 3. Leukocytosis. 4. Hyponatremia. 5. Amlodipine-benazepril one tablet daily, Lipitor 40 mg daily. PHYSICAL EXAMINATION: On the day of discharge, GENERAL: The patient looks quite lethargic. VITAL SIGNS: His temperature 96.7, pulse 89, blood pressure 155/66, and saturating 93% on room air. CARDIOPULMONARY: Quite unremarkable. ABDOMEN: He has a soft abdomen with good bowel sounds. HOSPITAL COURSE: Please refer to history and physical as well as daily progress notes for more details. A 74-year-old male presented with encephalopathy and right-sided upper and lower extremity weakness. Initial CT revealed left basal ganglia hemorrhage. No neurosurgical intervention. He was followed closely in the critical care unit. Repeat head CT on December 15 showed slight increase in size of the hemorrhage per Neurosurgery. Monitor for neurological deficits. Again, no aggressive intervention. Palliative consulted. The patient is going to the rehab today. DISCHARGE INSTRUCTIONS: Activity with supervision. Follow up with the primary as well as Neurosurgery as needed. Prognosis remained guarded. [facility] TIME SPENT: Discharge time took over 30 minutes. Job ID: [id number] MTDD
--- NOTE | 2019-12-24 12:53 | EKG ---
Test Reason : Blood Pressure : / mmHG Vent. Rate : 061 BPM Atrial Rate : 085 BPM P-R Int : 000 ms QRS Dur : 090 ms QT Int : 412 ms P-R-T Axes : 026 015 029 degrees QTc Int : 414 ms Sinus rhythm with 2nd degree A-V block (Mobitz I) Abnormal ECG Confirmed by AMARJIT GOVEA ([id number]), editor trade journal KAN GARG ([id number]) on 12/24/2019 12:53:01 PM Referred By: Confirmed By:AMARJIT Burgos
== END 2019-12-17 15:10 | DRG 65 ==
LOC: ERS 10:21 → CCU 11:02 → IMCU/EMU 12-14 16:23
PROVIDERS: ADMIT Surgery; ATTEND Surgery
DX: I62.9 Nontraumatic intracranial hemorrhage, unspecified (principal); I16.1 Hypertensive emergency; E87.1 Hypo-osmolality and hyponatremia; G81.91 Hemiplegia, unspecified affecting right dominant side; G93.49 Other encephalopathy; E78.5 Hyperlipidemia, unspecified; I12.9 Hypertensive chronic kidney disease with stage 1 through stage 4 chronic kidney disease, or unspecified chronic kidney disease; N18.2 Chronic kidney disease, stage 2 (mild); E66.9 Obesity, unspecified; I44.1 Atrioventricular block, second degree; D72.829 Elevated white blood cell count, unspecified; Z91.19 Patient's noncompliance with other medical treatment and regimen; Z93.3 Colostomy status; Z68.31 Body mass index [BMI] 31.0-31.9, adult
CPT/HCPCS: 36415; 70450; 71045; 80048; 80053; 80061; 83735; 83930; 83935; 85025; 85027; 85610; 85730; 93005; 93306; 96365; J0360; J7050; S0028